=== PATIENT | male | born 1950 | race Caucasian/White ===

== ENCOUNTER 2019-12-30 05:24 | Emergency (ER) | payer MEDICARE, SELFPAY ==
[2019-12-30 05:28] VITALS: BP 185/111; PULSE 71; RESP 20; TEMP 36.7; O2SAT 90; BMI 34.2
[2019-12-30 05:41] VITALS: BP 177/92; PULSE 64; RESP 20; O2SAT 96
--- NOTE | 2019-12-30 05:42 | ECG_ITS ---
Test Reason : HYPERTENSION Blood Pressure : / mmHG Vent. Rate : 061 BPM Atrial Rate : 061 BPM P-R Int : 158 ms QRS Dur : 092 ms QT Int : 430 ms P-R-T Axes : 049 052 020 degrees QTc Int : 432 ms Normal sinus rhythm Nonspecific T wave abnormality Borderline ECG No previous ECGs available Referred By: Corazon Berry Electronically Signed By:MERLINE AN MD
[2019-12-30 06:00] VITALS: BP 171/91; PULSE 62; RESP 16; O2SAT 95
[2019-12-30 06:10] LABS: MANUAL DIFF FLAG NO
[2019-12-30 06:29] LABS: Basophils Percent Auto 0.4 % (0-2); Eosinophils Absolute Auto 0.1 X10*3/uL (0.0-0.4); Eosinophils Percent Auto 0.9 % (0-4); Hematocrit 43.6 % (42-52); Hemoglobin 14.6 g/dl (14.0-18.0); Imm Gran Abs Auto 0.04 X10*3/uL (0.00-0.03); Imm Gran Pct Auto 0.4 % (0.0-0.4); Lymphocytes Absolute Auto 1.4 X10*3/uL (1.2-4.9); Lymphocytes Percent Auto 13.5 % (20-40); Mean Corpuscular HGB Conc 33.5 g/dl (31.0-36.0); Mean Corpuscular Hemoglobin 31.1 pg (27.0-33.0); Mean Corpuscular Volume 92.8 fL (80-98); Mean Platelet Volume 10.5 fL (9.4-12.4); Monocytes Absolute Auto 0.7 X10*3/uL (0.1-1.2); Monocytes Percent Auto 6.6 % (2-11); Neutrophils Absolute Auto 7.8 X10*3/uL (2.0-8.3); Neutrophils Percent Auto 78.2 % (45-73); Platelet Count 230 X10*3/uL (160-400); Red Cell Distribution Width 12.1 % (11.0-16.0)
--- NOTE | 2019-12-30 06:31 | ED_ITS ---
HPI - General Adult General Chief complaint: General Medical Stated complaint: HIGH BLOOD PRESSURE Time Seen by Provider: 12/30/19 05:42 History of Present Illness HPI narrative: This is a 69-year-old male who comes in with complaints having increasing blood pressure since last night and states that he has been taking his medication as prescribed. Patient denies any fevers, chills, nausea, shortness of breath, chest pain /palpitations, vomiting, abdominal pain, diarrhea, or urinary pain/ burning/frequency. However, patient does describe a small headache at his right shinto but denies any associated vision loss, double vision, or blurry vision. Related Data Home Medications Medication Instructions Recorded Confirmed albuterol sulfate 2 puff INHALATION Q4H PRN 12/30/19 12/30/19 erythromycin 0.25 OPHTHALMIC-RIGHT BEDTIME 12/30/19 furosemide 1 tab PO DAILY 12/30/19 12/30/19 gabapentin 2 cap PO BEDTIME 12/30/19 12/30/19 hydrocodone-acetaminophen 1 tab PO Q4H PRN 12/30/19 12/30/19 levothyroxine 1 tab PO DAILY 12/30/19 12/30/19 losartan 1 tab PO DAILY 12/30/19 12/30/19 metoprolol succinate 1 tab PO DAILY 12/30/19 12/30/19 metoprolol succinate 1 tab PO DAILY 12/30/19 12/30/19 olopatadine 1 drp OPHTHALMIC (EYE) BID 12/30/19 12/30/19 spironolactone 1 tab PO DAILY 12/30/19 12/30/19 tiotropium bromide [Spiriva with 1 cap INHALATION QAM 12/30/19 12/30/19 HandiHaler] vardenafil 10 mg PO DAILY PRN 12/30/19 12/30/19 Allergies Allergy/AdvReac Type Severity Reaction Status Date / Time No Known Allergies Allergy Verified 12/30/19 05:28 Review of Systems Review of Systems: Pertinent positives and negatives as stated in HPI 10 point review of systems is otherwise negative. [facility] Past Medical History Source: nursing notes reviewed Medical History COPD (chronic obstructive pulmonary disease) HTN (hypertension) Social History Social History Alcohol intake: never Smoking Status: Never smoker Use of substances other than those prescribed or required for medical reasons: No Advance Directives: No Advance Directives Information Provided: No Physical Exam Vital Signs: Vital Signs: Vital Signs Temp Pulse Resp BP Pulse Ox 12/30/19 06:00 62 16 171/91 H 95 12/30/19 05:41 64 20 177/92 H 96 12/30/19 05:28 98.0 F 71 20 185/111 H 90 L Body Mass Index 34.2 VITAL SIGNS: Reviewed. GENERAL: Well developed, well nourished, in no acute distress. HEAD: Normocephalic/atraumatic, EYES: PERRLA, EOMI intact without pain, no nystagmus/pallor/icterus noted EARS: Ext canals without abnormality, TMs non-bulging and non-erythematous NOSE: Nares patent bilateral OROPHARYNX: no oral lesions noted, posterior pharynx clear and non-erythematous without noted tonsillar enlargement/erythema/exudates NECK: Supple, no adenopathy LUNGS: Normal breath sounds. No adventitious sounds or accessory muscle use. SpO2<96> CARDIOVASCULAR: Regular rate and rhythm without noted murmurs, no JVD or lower extremity edema. ABDOMEN: Soft, non-tender, non-distended with bowel sounds. No rigidity. No guarding. No palpable masses or hernias noted MUSCULOSKELETAL: No tenderness, deformities, or effusions noted on gross inspection. EXTREMITIES: No cyanosis, clubbing or edema. SKIN: Inspection of the skin reveals no rashes, ulcerations, jaundice, pallor, or petechiae. NEUROLOGIC: Alert and oriented x 4. Strength and sensation to light touch were grossly intact x 4. Course Course Course Narrative: This is a 69-year-old male with history and clinical presentation of hypertension and mild headache without neurological deficits. On review of all investigations there are no acute findings and specifically high sensitivity troponin is within normal limits and EKG does not show evidence of acute ischemia. All results and findings were discussed with the patient at bedside and he was strongly encouraged to follow-up with his primary care provider and discuss possible blood pressure modification as well as given instructions on dietary modifications that may help. Medical Decision Making Lab Data Result diagrams: 12/30/19 06:05 12/30/19 06:05 Labs: Lab Results 11/06/1412/30/19 12/30/19 Range/Units 06:05 06:05 06:05 WBC 10.0 (4.8-10.8) X10*3/uL RBC 4.70 (4.60-5.80) X10*6/uL Hgb 14.6 (14.0-18.0) g/dl Hct 43.6 (42-52) % MCV 92.8 (80-98) fL MCH 31.1 (27.0-33.0) pg MCHC 33.5 (31.0-36.0) g/dl RDW 12.1 (11.0-16.0) % Plt Count 230 (160-400) X10*3/uL MPV 10.5 (9.4-12.4) fL Immature Gran % (Auto) 0.4 (0.0-0.4) % Neut % (Auto) 78.2 H (45-73) % Lymph % (Auto) 13.5 L (20-40) % [place] % (Auto) 6.6 (2-11) % Eos % (Auto) 0.9 (0-4) % Baso % (Auto) 0.4 (0-2) % Lymph # (Auto) 1.4 (1.2-4.9) X10*3/uL [place] # (Auto) 0.7 (0.1-1.2) X10*3/uL Eos # (Auto) 0.1 (0.0-0.4) X10*3/uL Baso # (Auto) 0.0 (0.0-0.2) X10*3/uL Abs Immat Gran (auto) 0.04 H (0.00-0.03) X10*3/uL Absolute Neuts (auto) 7.8 (2.0-8.3) X10*3/uL Absolute Nucleated RBC 0.000 (0.0-0.012) X10*3/uL Nucleated RBC % (auto) 0.0 (0.0-0.2) /100WBC Sodium 139 (135-145) mmol/L Potassium 4.3 (3.3-5.1) mmol/l Chloride 103 (96-108) mmol/L Carbon Dioxide 26 (22-29) mmol/L Anion Gap 14 (12-20) BUN 11 (9-16) mg/dL Creatinine 0.86 (0.5-1.4) mg/dL Estim Creat Clear Calc 86.7 Estimated GFR > 60 Random Glucose 136 H (60-115) mg/dL Calcium 8.8 (8.4-10.2) mg/dL Total Bilirubin 0.7 (0.0-1.0) mg/dL AST 14 (5-37) U/L ALT 17 (0-40) U/L Alkaline Phosphatase 68 (39-117) U/L Troponin I High Sens 3.6 (<3.5-35.0) ng/L Total Protein 6.7 (6.5-8.0) g/dL Albumin 4.3 (3.5-5.0) g/dL Discharge Plan Discharge Clinical Impression: Hypertension Qualifiers: Hypertension type: unspecified Qualified Code(s): I10 - Essential (primary) hypertension Patient Disposition: Home, Self-Care Instructions: DASH Eating Plan (ED), Heart Healthy Diet (ED), Hypertension (ED) Additional Instructions: 1. Resume all home medications as prescribed. 2. You should carefully monitor your salt intake. 3. Call the office of your primary care provider this morning to set up a follow-up appointment and re-evaluation of your blood pressure control. The patient and/or family acknowledge understanding of results (as applicable), diagnosis, treatment plan, need for follow up, and symptoms that should prompt a return to the emergency room. Prescriptions: No Action levothyroxine 175 mcg tablet 1 tab PO DAILY RF: 0 metoprolol succinate 50 mg tablet extended release 24 hr 1 tab PO DAILY RF: 0 spironolactone 25 mg tablet 1 tab PO DAILY RF: 0 hydrocodone-acetaminophen 7.5-325 mg tablet 1 tab PO Q4H PRN (Reason: pain) RF: 0 erythromycin 5 mg/gram (0.5 %) ointment 0.25 ophthalmic-Right BEDTIME RF: 0 olopatadine 0.1 % drops 1 drp ophthalmic (eye) BID RF: 0 gabapentin 300 mg capsule 2 cap PO BEDTIME RF: 0 furosemide 20 mg tablet 1 tab PO DAILY RF: 0 metoprolol succinate 25 mg tablet extended release 24 hr 1 tab PO DAILY RF: 0 albuterol sulfate 90 mcg/actuation HFA aerosol inhaler 2 puff inhalation Q4H PRN (Reason: wheezing) RF: 0 losartan 100 mg tablet 1 tab PO DAILY RF: 0 vardenafil 10 mg Tablet 10 mg PO DAILY PRN (Reason: Erectile Dysfunction) RF: 0 Spiriva with HandiHaler 18 mcg capsule, w/inhalation device 1 cap inhalation QAM RF: 0 Referrals: Physician,Unknown [Primary Care Provider] - 2 days ( For further evaluation management of your hypertension)
[2019-12-30 06:44] LABS: Alanine Aminotransferase 17 U/L (0-40); Albumin Level 4.3 g/dL (3.5-5.0); Alkaline Phosphatase 68 U/L (39-117); Anion Gap 14 (12-20); Aspartate Amino Transferase 14 U/L (5-37); Bilirubin Total 0.7 mg/dL (0.0-1.0); Blood Urea Nitrogen 11 mg/dL (9-16); Calcium 8.8 mg/dL (8.4-10.2); Carbon Dioxide 26 mmol/L (22-29); Chloride 103 mmol/L (96-108); Creatinine Clr Calc Pharmacy 86.7; Estimated Glomerular Filt Rate > 60; Glucose Random 136 mg/dL (60-115); Potassium 4.3 mmol/l (3.3-5.1); Sodium 139 mmol/L (135-145); Total Protein 6.7 g/dL (6.5-8.0)
[2019-12-30 06:45] LABS: Troponin-I High Sensitivity 3.6 ng/L (<3.5-35.0)
== END 2019-12-30 09:16 | disposition home or self-care (01) ==
PROVIDERS: Emergency Provider Student in an Organized Health Care Education/Training Program; PCP Internal Medicine Sports Medicine
DX: I10 Essential (primary) hypertension (principal); R51.9 Headache, unspecified; Z79.899 Other long term (current) drug therapy
CPT/HCPCS: 36415; 80053; 84484; 85025; 93005; 99283; 99284

== ENCOUNTER 2020-12-13 10:16 | Outpatient (REF) | payer MEDICARE, SELFPAY ==
--- NOTE | ~2020-12-13 | XR_ITS ---
EXAMINATION: XR CHEST CLINICAL INFORMATION: SOB. COMPARISON: Chest x-ray 06/14/2014. TECHNIQUE: 2 views of the chest were obtained. FINDINGS: There is a right central venous port. There is a moderate opacification right lung base from pleural effusion/infiltrate/atelectasis. The right upper lung and the left lung remains clear. Heart size is probably normal. Pulmonary vascularity is normal. No gross bony abnormality. XR/XR chest 2V IMPRESSION: Moderate opacification right lung base likely effusion with underlying infiltrate and/or atelectasis. Immediate old x-rays performed at another institution are not available for comparison. Correlate with recent chest x-ray. Patient has right central port likely receiving chemotherapy. Correlate clinically. Results were called by phone to Dr. Taty York executive secretary at 11:23 AM.
[2020-12-13 11:35] LABS: MANUAL DIFF FLAG NO
[2020-12-13 11:49] LABS: Basophils Percent Auto 0.6 % (0-2); Eosinophils Percent Auto 0.6 % (0-4); Hematocrit 37.2 % (42-52); Imm Gran Abs Auto 0.05 X10*3/uL (0.00-0.03); Imm Gran Pct Auto 0.8 % (0.0-0.4); Lymphocytes Absolute Auto 1.2 X10*3/uL (1.2-4.9); Lymphocytes Percent Auto 17.9 % (20-40); Mean Corpuscular HGB Conc 32.3 g/dl (31.0-36.0); Mean Corpuscular Hemoglobin 30.2 pg (27.0-33.0); Mean Corpuscular Volume 93.5 fL (80-98); Mean Platelet Volume 9.6 fL (9.4-12.4); Monocytes Absolute Auto 0.3 X10*3/uL (0.1-1.2); Monocytes Percent Auto 4.1 % (2-11); Platelet Count 162 X10*3/uL (160-400); Red Blood Count 3.98 X10*6/uL (4.60-5.80); Red Cell Distribution Width 14.6 % (11.0-16.0); White Blood Count 6.6 X10*3/uL (4.8-10.8)
[2020-12-13 12:13] LABS: Alanine Aminotransferase 22 U/L (0-40); Alkaline Phosphatase 119 U/L (39-117); Anion Gap 12 (12-20); Aspartate Amino Transferase 22 U/L (5-37); Bilirubin Total 0.5 mg/dL (0.0-1.0); Blood Urea Nitrogen 9 mg/dL (9-16); Calcium 8.9 mg/dL (8.4-10.2); Carbon Dioxide 26 mmol/L (22-29); Chloride 102 mmol/L (96-108); Estimated Glomerular Filt Rate > 60; Glucose Random 112 mg/dL (60-115); Potassium 3.9 mmol/L (3.3-5.1); Sodium 136 mmol/L (135-145); Total Protein 6.2 g/dL (6.5-8.0)
[2020-12-13 12:35] LABS: Prostate Specific Antigen Scr 1.02 ng/mL (<0.05-4.0); TSH reflex Free T4 11.92 uIU/mL (0.32-4.0)
[2020-12-13 13:11] LABS: Free T4 (Free Thyroxine) 0.91 ng/dL (0.71-1.85)
[2020-12-13 14:36] LABS: Microalbum/Creatinine Ratio Ur 6.4 ug/mg cr
[2020-12-13 14:55] LABS: Influenza A PCR NEGATIVE (Negative); Influenza B PCR NEGATIVE (Negative); Resp Syncy Virus RNA Qual PCR NEGATIVE (Negative); SARS COV2 PCR INHOUSE NEGATIVE (Negative)
== END 2020-12-13 10:17 | disposition home or self-care (01) ==
LOC: HO.WFDLDS 10:16
PROVIDERS: PCP Family Medicine; Visit Provider Family Medicine
DX: Z00.00 Encounter for general adult medical examination without abnormal findings (principal); Z12.5 Encounter for screening for malignant neoplasm of prostate; Z20.822 Contact with and (suspected) exposure to COVID-19; R06.89 Other abnormalities of breathing; I10 Essential (primary) hypertension
CPT/HCPCS: 0241U; 36415; 71046; 80053; 82043; 84153; 84439; 84443; 85025

== ENCOUNTER 2021-03-02 10:51 | Outpatient (REF) | payer MEDICARE, SELFPAY | END 2021-03-02 10:52 | disposition home or self-care (01) | LOC: HO.WFDLDS 10:51 | PROVIDERS: PCP Family Medicine; Visit Provider Internal Medicine | DX: Z20.822 Contact with and (suspected) exposure to COVID-19 (principal) | CPT/HCPCS: C9803; U0003; U0005 ==